=== PATIENT | female | born 1980 ===

== ENCOUNTER 2023-09-16 14:48 | Emergency (ER) | payer OTHER ==
[2023-09-16] MEDS: Sodium Chloride 0.9% 1,000 ML IV ONE (15:17)
[2023-09-16] MEDS: Sodium Chloride 0.9% 10 ML Syringe FLUSH PRN (15:18)
[2023-09-16 15:22] LABS: BASOPHILS PERCENT AUTO 0.4 % (0.0-1.0); EOSINOPHILS PERCENT AUTO 0.4 % (1.0-3.0); HEMATOCRIT 45.4 % (37.0-47.0); HEMOGLOBIN 15.8 g/dL (12.0-16.0); LYMPHOCYTES PERCENT AUTO 11.8 % (20.5-50.1); MEAN CORPUSCULAR HEMOGLOBIN 32.4 pg (27.0-34.0); MEAN CORPUSCULAR HGB CONC 34.8 g/dL (33.0-35.0); MONOCYTES PERCENT AUTO 7.1 % (2-8); NEUTROPHILS PERCENT AUTO 80.3 % (42.2-75.2); PLATELET COUNT,PLT 213 10^3/uL (150-450); RED BLOOD CELL COUNT 4.88 10^6/uL (4.2-5.4); WHITE BLOOD CELL COUNT,WBC 12.4 10^3/uL (5.0-10.0)
[2023-09-16 15:46] LABS: ALANINE AMINOTRANSFERASE,ALT 16 U/L (14-59); ALBUMIN 4.2 g/dL (3.4-5.0); ALKALINE PHOSPHATASE 77 U/L (46-116); ANION GAP 12.6 mEq/L (7-13); ASPARTATE AMNIOTRANSFERASE,AST 12 U/L (15-37); BILIRUBIN TOTAL 0.9 mg/dL (0.2-1.0); BLOOD UREA NITROGEN,BUN 8 mg/dL (7-18); C-REACTIVE PROTEIN 8.01 ng/dL (<=0.50); CALCIUM 9.8 mg/dL (8.5-10.1); CARBON DIOXIDE,CO2 32 mmol/L (21-32); CHLORIDE,CL 98 mmol/L (98-107); CREATININE 0.73 mg/dL (0.55-1.02); EST CRCL DRUG DOSING (CG) 85.81 mL/min; ESTIMATED GFR 105 mL/min (>=60); GLUCOSE RANDOM 90 mg/dL (70-99); POTASSIUM,K 4.6 mmol/L (3.5-5.1); PROTEIN TOTAL,TP 8.3 g/dL (6.4-8.2); SODIUM,NA 138 mmol/L (136-145)
[2023-09-16 15:49] LABS: LACTIC ACID 1.5 mmol/L (0.4-2.0)
[2023-09-16] MEDS: Iopamidol 612 MG/ML 100 ML Bottle IVPUSH ONE (15:53)
[2023-09-16] MEDS: Ampicillin/Sulbactam Na 3 GM in Sodium Chloride 0.9% 100 ML IV ONE (16:27)
[2023-09-16] MEDS: Ketorolac 30 MG/ML SDV IVPUSH ONE (16:34)
[2023-09-16] MEDS: Acetaminophen/oxyCODONE 325-5 MG Tab PO ONE (16:40)
[2023-09-16] MEDS: Take Home: Acetaminophen/oxyCODONE 325-5 MG, 5 Tab Pack PO ONE ×2 (17:18→17:36)
[2023-09-16] MEDS: Take Home: Amoxicillin/Clavulanate K 875-125 MG Tab, 6 Tab Pack PO ONE (17:18)
== END 2023-09-16 17:44 ==
LOC: DL.ED 14:48
DX: K04.7 Periapical abscess without sinus (principal); J01.00 Acute maxillary sinusitis, unspecified; L03.211 Cellulitis of face; Z88.8 Allergy status to other drugs, medicaments and biological substances
CPT/HCPCS: 36415; 70487; 80053; 83605; 84145; 85025; 86140; 87040; 96361; 96365; 96375; 99284; A9270; J0295; J1885; J3490; J7030; Q9967; 99283